=== PATIENT | male | born 2000 | race Caucasian/White ===

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

== ENCOUNTER 2022-09-06 13:15 | Emergency (ER) | payer OTHER, SELFPAY ==
[2022-09-06 13:52] VITALS: BP 124/74; PULSE 76; RESP 18; TEMP 36.3; O2SAT 99
--- NOTE | 2022-09-06 14:29 | ED.URI ---
HPI - URI/Sore Throat General Chief Complaint: Upper Respiratory Infection Stated Complaint: sorethroat Time Seen by Provider: 09/06/22 14:31 Source: patient, RN notes reviewed and old records reviewed Mode of arrival: ambulatory Limitations: no limitations History of Present Illness HPI Narrative: year presents to the [facility] with complaints of a sore throat since last night. No treatment prior to arrival. 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 Related Data Allergies Allergy/AdvReac Type Severity Reaction Status Date / Time No Known Allergies Allergy Verified 09/06/22 15:26 Review of Systems Review of Systems: All systems reviewed & are unremarkable except as noted in HPI and below Constitutional: Constitutional: Reports no additional constitutional complaints Eyes: Eyes: Reports no additional eye complaints ENT: Reports as per HPI and Reports sore throat Cardiovascular: Cardiovascular: Reports no additional cardiovascular complaints, Denies chest pain and Denies dyspnea Respiratory: Respiratory: Reports no additional respiratory complaints, Denies chest congestion, Denies cough and Denies dyspnea Gastrointestinal: Gastrointestinal: Reports no additional gastrointestinal complaints, Denies abdominal pain, Denies nausea and Denies vomiting Musculoskeletal: Musculoskeletal: Reports no additional musculoskeletal complaints Integumentary/Breasts: Skin/Breast: Reports system reviewed and no additional complaints, except as docu Neurologic: Reports system reviewed and no additional complaints, except as documented Psychiatric: Psychiatric: Reports no additional psychiatric complaints Allergic/Immunologic: Allergic/Immunologic: Reports no additional allergic/immunologic complaints [facility] Social History Social History Gender identity (if verbalized by the patient): Male Comments At the time of my signature, I reviewed and agree with the nursing past medical, surgical, social, and family history. There is no relevant family history pertinent to the patient complaint. Exam Const: General: cooperative, healthy appearing, comfortable, no acute distress, well developed, alert and well nourished Nutritional Appearance: well nourished Orientation/consciousness: patient oriented x3 Limitations: no limitations HENMT: Head: normal to inspection Ears: hearing grossly normal bilaterally and external ears normal Face/Nose/Sinus: Normal external nose present, Normal nares present, Normal nasal mucous membranes and turbinates present and normal facial exam Face and sinus: normal facial exam Mouth: Yes Normal oral and palatal mucosa present, Yes lip normal and Yes moist mucous membranes Throat: uvula midline, abnormal tonsil bilateral erythema, exudates and hypertrophy 2+ and posterior oropharynx abnormal erythema; no edema and no exudates Eyes: General: appearance normal, both eyes and all related structures Alignment and Position: alignment normal Periorbital: periorbital findings normal Conjunctivae: conjunctivae normal Pupils: Equal, round and reactive pupils present EOM: EOMs intact bilaterally Neck: Neck: normal visual inspection, full ROM, no meningeal signs and lymphadenopathy ( Bilateral submandibular) Chest: Chest palpation & inspection: normal inspection of the chest Resp: Effort & Inspection: normal respiratory effort and able to speak in complete sentences Auscultation: clear to auscultation bilaterally, no crackles, no rales, no rhonchi and no wheezes Cardio: Rate: regular rate Rhythm: regular rhythm Back/Spine/Pelvis: Cervical Spine: cervical ROM normal Thoracic/Lumbar Spine: No thoracic spinal tenderness Skin: General skin exam: normal color and no rashes or lesions noted Lesions: no lesions Rashes: no rashes Wounds: no wounds Neuro: General: patient oriented x3, gait normal, tone normal, moves all extremities and no meningeal s
== END 2022-09-06 14:44 | disposition home or self-care (01) ==
PROVIDERS: Emergency Provider Nurse Practitioner; PCP Pediatrics
DX: J01.90 Acute sinusitis, unspecified (principal)
CPT/HCPCS: 87081; 99213; G0463

== ENCOUNTER 2023-08-05 14:05 | Emergency (ER) | payer OTHER, SELFPAY ==
--- NOTE | 2023-08-05 14:10 | ED.URI ---
HPI - URI/Sore Throat General Chief Complaint: Upper Respiratory Infection Stated Complaint: Sore Throat Time Seen by Provider: 08/05/23 14:12 Source: patient, RN notes reviewed and old records reviewed Mode of arrival: ambulatory Limitations: no limitations History of Present Illness HPI Narrative: 22-year-old male presents to the [facility] with complaints of a sore throat. Symptoms started 2 days ago. Reports he feverish yesterday, did take his temperature Has taken ibuprofen. Denies any other symptoms, denies congestion, ear pain, cough Related Data Home Medications Medication Instructions Recorded Confirmed No Home Medications 08/05/23 08/05/23 Allergies Allergy/AdvReac Type Severity Reaction Status Date / Time No Known Allergies Allergy Verified 08/05/23 14:07 Review of Systems Review of Systems: All systems reviewed & are unremarkable except as noted in HPI and below Constitutional: Constitutional: Reports no additional constitutional complaints Eyes: Eyes: Reports no additional eye complaints ENT: Reports as per HPI and Reports sore throat Cardiovascular: Cardiovascular: Reports no additional cardiovascular complaints, Denies chest pain and Denies dyspnea Respiratory: Respiratory: Reports no additional respiratory complaints, Denies chest congestion, Denies cough and Denies dyspnea Gastrointestinal: Gastrointestinal: Reports no additional gastrointestinal complaints, Denies abdominal pain, Denies nausea and Denies vomiting Musculoskeletal: Musculoskeletal: Reports no additional musculoskeletal complaints Integumentary/Breasts: Skin/Breast: Reports system reviewed and no additional complaints, except as docu Neurologic: Reports system reviewed and no additional complaints, except as documented Psychiatric: Psychiatric: Reports no additional psychiatric complaints Allergic/Immunologic: Allergic/Immunologic: Reports no additional allergic/immunologic complaints [facility] Past Medical History Medical History (Updated 08/05/23 @ 15:27 by Marija Rondon APRN) Patient denies medical problems Surgical History Surgical History (Updated 08/05/23 @ 15:27 by Marija Rondon APRN) No pertinent past surgical history Social History Social History Gender identity (if verbalized by the patient): Male Comments At the time of my signature, I reviewed and agree with the nursing past medical, surgical, social, and family history. There is no relevant family history pertinent to the patient complaint. Exam Const: General: cooperative, healthy appearing, comfortable, no acute distress, well developed, alert and well nourished Nutritional Appearance: well nourished Orientation/consciousness: patient oriented x3 Limitations: no limitations HENMT: Head: normal to inspection Ears: hearing grossly normal bilaterally and external ears normal Face/Nose/Sinus: Normal external nose present, Normal nares present, Normal nasal mucous membranes and turbinates present, normal facial exam and face symmetric Face and sinus: normal facial exam and face symmetric Mouth: Yes Normal oral and palatal mucosa present, Yes lip normal and Yes moist mucous membranes Throat: posterior oropharynx normal, tonsils normal, uvula midline and postnasal drainage Eyes: General: appearance normal, both eyes and all related structures Alignment and Position: alignment normal Periorbital: periorbital findings normal Pupils: Equal, round and reactive pupils present EOM: EOMs intact bilaterally Neck: Neck: normal visual inspection, full ROM, no lymphadenopathy and no meningeal signs Chest: Chest palpation & inspection: normal inspection of the chest Resp: Effort & Inspection: normal respiratory effort and able to speak in complete sentences Auscultation: clear to auscultation bilaterally, no crackles, no rales, no rhonchi and no wheezes Cardio: Rate: regular rate Rhythm: regu
[2023-08-05 14:11] VITALS: BP 121/71; PULSE 82; RESP 16; TEMP 36.2; O2SAT 98
== END 2023-08-05 14:38 | disposition home or self-care (01) ==
PROVIDERS: Emergency Provider Nurse Practitioner
DX: J02.9 Acute pharyngitis, unspecified (principal)
CPT/HCPCS: 87081; 87880; 99213; G0463

== ENCOUNTER 2023-10-22 09:17 | Emergency (ER) | payer OTHER, SELFPAY ==
[2023-10-22 10:20] VITALS: BP 141/75; PULSE 104; RESP 18; TEMP 38.3; O2SAT 97
--- NOTE | 2023-10-22 10:39 | ED.URI ---
HPI - URI/Sore Throat General Chief Complaint: Upper Respiratory Infection Stated Complaint: covid symptoms Source: patient and RN notes reviewed Mode of arrival: ambulatory Limitations: no limitations History of Present Illness HPI Narrative: 23-year-old male presented for complaint of headache, body aches, sinus congestion, cough, fever/chills. Onset 3 days. Day of onset he had vomiting. Endorses known exposure to Covid in his house. Denies sob, wheezing, n/v/d since onset. Alternating Tylenol and ibuprofen. MD elicited complaint: cough Related Data Home Medications Medication Instructions Recorded Confirmed No Home Medications 08/05/23 10/22/23 Allergies Allergy/AdvReac Type Severity Reaction Status Date / Time No Known Allergies Allergy Verified 10/22/23 11:50 Review of Systems Review of Systems: CONSTITUTIONAL: Endorses malaise, chills, sweats, fever EYES: Denies visual changes, redness, or discharge ENT: Reports rhinorrhea, congestion, denies sinus pain, otalgia, sore throat CARDIOVASCULAR: Denies chest pain, palpitations, edema RESPIRATORY: Reports mild cough, post nasal drainage. Denies dyspnea GASTROINTESTINAL: Denies abdominal pain, nausea, vomiting, diarrhea SKIN: Denies rash or itching MUSCULOSKELETAL: Endorses myalgia NEUROLOGIC: endorses headache PMFSH Past Medical History Medical History Patient denies medical problems Surgical History Surgical History No pertinent past surgical history Social History Social History Gender identity (if verbalized by the patient): Male Exam Narrative: GENERAL: Mildly Ill-appearing, nontoxic no acute distress. EYES: PERRLA, conjunctivae clear ENT: Mucous membranes moist. TMs pearly lino with dull light reflex bilaterally; no tragal tenderness. Oropharynx erythematous without lesions or exudate NECK: Supple. No lymphadenopathy CHEST: Clear to auscultation, breath sounds equal. No wheezing, rhonchi, rales, or stridor. No respiratory distress, speaks in full sentences. HEART: Regular rate and rhythm. No murmur heard. SKIN: Warm, dry, no rash. NEURO: Alert and oriented x3. PSYCH: Normal mood and affect Course Course Emergency Course: Patient is aware of diagnosis, understands and agrees to treatment plan. Anticipatory guidance given. Patient agrees to follow-up as directed and is aware of reasons to seek care at the emergency department. Portions of this record may have been created with voice recognition software Level of Care: Express Care Visit Vital Signs Vital signs: Vital Signs Temperature 101.0 F H 10/22/23 10:20 Pulse Rate 104 H 10/22/23 10:20 Respiratory Rate 18 10/22/23 10:20 Blood Pressure 141/75 H 10/22/23 10:20 Pulse Oximetry 97 10/22/23 10:20 Oxygen Delivery Room Air 10/22/23 10:20 Temperature 101.0 F H 10/22/23 10:20 Pulse Rate 104 H 10/22/23 10:20 Respiratory Rate 18 10/22/23 10:20 Blood Pressure 141/75 H 10/22/23 10:20 Pulse Oximetry 97 10/22/23 10:20 Oxygen Delivery Room Air 10/22/23 10:20 reviewed MDM - URI/Sore Throat MDM Narrative Medical decision making narrative: Positive COVID. Results reviewed with patient. Discussed physical exam findings. Advised supportive measures and signs/symptoms to go to the ER. Pt is appropriate for outpt treatment and f/u. Differential Diagnosis Differential diagnosis: Likely upper respiratory infection, sinusitis, viral infection, bronchitis, influenza and other Lab Data Labs: Lab Results 10/22/23 Range/Units 10:20 POC SARS CoV-2 Ag Positive (Negative) Influenza A Screen Negative Reference Range: Negative Influenza B Screen Negative R
--- NOTE | 2023-10-22 12:35 | ED.URI ---
HPI - URI/Sore Throat General Chief Complaint: Upper Respiratory Infection Stated Complaint: covid symptoms History of Present Illness HPI Narrative: 23-year-old male presented for complaint of headache, body aches, sinus congestion, cough, fever/chills. Onset 3 days. Day of onset he had vomiting. Endorses known exposure to Covid in his house. Denies sob, wheezing, n/v/d since onset. Alternating Tylenol and ibuprofen. Related Data Home Medications Medication Instructions Recorded Confirmed No Home Medications 08/05/23 10/22/23 Allergies Allergy/AdvReac Type Severity Reaction Status Date / Time No Known Allergies Allergy Verified 10/22/23 11:50 Review of Systems Review of Systems: CONSTITUTIONAL: Endorses malaise, chills, sweats,? fever EYES: Denies visual changes, redness, or discharge ENT: Reports rhinorrhea, congestion, denies sinus pain, otalgia, sore throat CARDIOVASCULAR: Denies chest pain, palpitations, edema RESPIRATORY: Reports mild cough, post nasal drainage.? Denies dyspnea GASTROINTESTINAL: Denies abdominal pain, nausea, vomiting, diarrhea SKIN: Denies rash or itching MUSCULOSKELETAL: Endorses myalgia NEUROLOGIC: endorses headache PMFSH Past Medical History Medical History Patient denies medical problems Surgical History Surgical History No pertinent past surgical history Social History Social History Gender identity (if verbalized by the patient): Male Exam Narrative: GENERAL: Mildly Ill-appearing, nontoxic? no acute distress. EYES: PERRLA, conjunctivae clear ENT: Mucous membranes moist. TMs pearly lino with dull light reflex bilaterally; no tragal tenderness. Oropharynx erythematous without lesions or exudate NECK: Supple. No lymphadenopathy CHEST: Clear to auscultation, breath sounds equal. No wheezing, rhonchi, rales, or stridor. No respiratory distress, speaks in full sentences. HEART: Regular rate and rhythm. No murmur heard. SKIN: Warm, dry, no rash. NEURO: Alert and oriented x3. PSYCH: Normal mood and affect Course Course Level of Care: Express Care Visit Vital Signs Vital signs: Vital Signs Temperature 101.0 F H 10/22/23 10:20 Pulse Rate 104 H 10/22/23 10:20 Respiratory Rate 18 10/22/23 10:20 Blood Pressure 141/75 H 10/22/23 10:20 Pulse Oximetry 97 10/22/23 10:20 Oxygen Delivery Room Air 10/22/23 10:20 Temperature 101.0 F H 10/22/23 10:20 Pulse Rate 104 H 10/22/23 10:20 Respiratory Rate 18 10/22/23 10:20 Blood Pressure 141/75 H 10/22/23 10:20 Pulse Oximetry 97 10/22/23 10:20 Oxygen Delivery Room Air 10/22/23 10:20 MDM - URI/Sore Throat MDM Narrative Medical decision making narrative: Positive COVID.? Results reviewed with patient.? Discussed physical exam findings. Advised supportive measures and signs/symptoms to go to the ER. Pt is appropriate for outpt treatment and f/u. Differential Diagnosis Differential diagnosis: Likely upper respiratory infection, sinusitis, viral infection, bronchitis, influenza and pharyngitis Lab Data Attestation: I reviewed the patient's lab results. ( THE URINE IS WRONG PT ) Labs: Lab Results 10/22/23 Range/Units 10:20 POC SARS CoV-2 Ag Positive (Negative) Influenza A Screen Negative Reference Range: Negative Influenza B Screen Negative Reference Range: Negative Urine Glucose Negative Reference Range: Negative Urine Bilirubin Negative Reference Range: Negative Urine Ketone Negative Referen
== END 2023-10-22 11:00 | disposition home or self-care (01) ==
PROVIDERS: Emergency Provider Nurse Practitioner Family
DX: U07.1 COVID-19 (principal)
CPT/HCPCS: 81003; 87426; 87804; 99213; G0463

== ENCOUNTER 2025-02-14 09:26 | Emergency (ER) | payer OTHER, SELFPAY ==
[2025-02-14 09:35] VITALS: BP 141/75; PULSE 103; RESP 18; TEMP 37.6; O2SAT 98
--- NOTE | 2025-02-14 09:47 | ED_ITS ---
HPI - General Adult General Chief complaint: Upper Respiratory Infection Stated complaint: sore throat/headache History of Present Illness HPI narrative: Paul Xavier Is a 24-year-old male who presents today with complaints of having URI symptoms that started 2 days ago. He complains of having a sore throat on day 1 which has not subsided and now having nasal congestion, generally not feeling well. Denies taking any medications for his symptoms, no cp/sob/vomiting Related Data Home Medications ?Medication ?Instructions ?Recorded ?Confirmed ?Last Taken ?Type No Home Medications 08/05/23 02/14/25 Unknown History Allergies Allergy/AdvReac Type Severity Reaction Status Date / Time No Known Allergies Allergy Verified 02/14/25 09:35 Review of Systems Review of Systems: All systems reviewed & are unremarkable except as noted in HPI and below PMFSH Past Medical History Medical History Patient denies medical problems Surgical History Surgical History No pertinent past surgical history Social History Social History Smoking status: Current every day smoker Gender identity (if verbalized by the patient): Male Exam Narrative: GENERAL: Well-appearing, well-nourished, and in no acute distress. HEAD: Normocephalic, atraumatic. EYES: PERRLA and EOMI. ENT: Nares clear, no rhinorrhea or epistaxis. Mucous membranes moist. Oropharynx without tonsillar hypertrophy exudate or other lesions mild erythema noted Bilateral TMs pearly lino nonbuilding NECK: Supple. No adenopathy CHEST: Clear to auscultation. No respiratory distress. No wheezes rales or rhonchi HEART: Regular rate and rhythm. No murmur heard. Normal peripheral pulses. ABDOMEN: Soft, nontender, nondistended, normal active bowel sounds. EXTREMITIES: Normal range of motion. No edema. SKIN: Warm, dry, no rash. NEURO: No focal deficits. Alert and oriented x3. PSYCH: Normal mood and affect. Course Course Level of Care: Express Care Visit Vital Signs Vital signs: Vital Signs Temperature 37.6 C H 02/14/25 09:35 Pulse Rate 103 H 02/14/25 09:35 Respiratory Rate 18 02/14/25 09:35 Blood Pressure 141/75 H 02/14/25 09:35 Pulse Oximetry 98 02/14/25 09:35 Oxygen Delivery Room Air 02/14/25 09:35 Temperature 37.6 C H 02/14/25 09:35 Pulse Rate 103 H 02/14/25 09:35 Respiratory Rate 18 02/14/25 09:35 Blood Pressure 141/75 H 02/14/25 09:35 Pulse Oximetry 98 02/14/25 09:35 Oxygen Delivery Room Air 02/14/25 09:35 Medical Decision Making MDM Narrative Medical decision making narrative: This 24 year old patient presents with symptoms most suggestive of viral upper respiratory tract infection. Lungs are clear bilaterally without any respiratory distress or accessory muscle use. Patient is treated symptomatically with Tylenol and Motrin strep- NEGATIVE viral swab- Negative Patient discharged home in stable condition with expectant management. Return precautions were provided. Procedures: Pulse oximetry interpretation - not hypoxic. Review of medical records. DISPOSITION: Discharged home in stable condition. IMPRESSION: Acute upper respiratory tract infection, likely viral Medical Records Medical records reviewed: Yes I reviewed the external patient's medical records. Vital Signs Vital Signs: Vital Signs Temperature 37.6 C H 02/14/25 09:35 Pulse Rate 103 H 02/14/25 09:35 Respiratory Rate 18 02/14/25 09:35 Blood Pressure 141/75 H 02/14/25 09:35 Pulse Oximetry 98 02/14/25 09:35 Oxygen Delivery Room Air 02/14/25 09:35 Temperature 37.6 C H 02/14/25 09:35 Pulse Rate 103 H 02/14/25 09:35 Respiratory Rate 18 02/14/25 09:35 Blood Pressure 141/75 H 02/14/25 09:35 Pulse Oximetry 98 02/14/25 09:35 Oxygen Delivery Room Air 02/14/25 09:35 Vitals reviewed Lab Data Lab results reviewed: Yes I reviewed the patient's lab results. Labs: Lab Results 02/14/25 Range/Units 09:50 POC Grp A Strep Screen Negative (Negative) Discharge Plan Discharge Clinical Impression: Upper respiratory infection Qualifiers: URI type: unspecified URI Qualified Code(s): J06.9 - Acute upper respiratory infection, unspecified Patient Disposition: Home Condition: Stable Instructions: Antibiotic Form Additional Instructions: continue to take Tylenol and Motrin for fever/body aches Push oral hydration, get plenty of rest Follow up with your PCP in 1 week Return or seek emergency care for any worsening symptoms or concerns Patient Language: [place] Prescriptions: No Action No Home Medications Follow-up/Referrals: Carmen Fair APRN [Emergency Provider] - Stand Alone Forms: Work/School Release IP Time of Disposition: 09:53
[2025-02-14 09:52] LABS: EDSTREPNEGPOS1 Negative (Negative)
[2025-02-14] MEDS: ACETAMINOPHEN 500 MG TABLET 1000 MG PO (09:55)
[2025-02-14] MEDS: IBUPROFEN 600 MG TABLET PO (09:55)
[2025-02-14 09:58] LABS: EDCOVIDSCREEN Negative (Negative); EDINFLUASCREEN Negative (Negative); EDINFLUBSCREEN Negative (Negative)
== END 2025-02-14 09:59 | disposition home or self-care (01) ==
PROVIDERS: Emergency Provider Nurse Practitioner Family
DX: J06.9 Acute upper respiratory infection, unspecified (principal); Z20.822 Contact with and (suspected) exposure to COVID-19; F17.200 Nicotine dependence, unspecified, uncomplicated
CPT/HCPCS: 87081; 87426; 87804; 87880; 99213; A9270; G0463